=== PATIENT | female | born 1970 | race Caucasian/White ===

== ENCOUNTER 2025-03-31 17:02 | Emergency (ER) | payer MEDICAID ==
[~2025-03-31] VITALS: Ht 177.8 cm; Wt 84.1 kg
[2025-03-31 17:37] VITALS: BP 113/73; PULSE 89; RESP 14; TEMP 97.8; O2SAT 97
[2025-03-31 18:52] LABS: MEAN PLATELET VOLUME 8.8 FL (7.4-10.4); RED CELL DISTRIBUTION WIDTH 14.3 % (11.5-14.5)
[2025-03-31 18:53] LABS: CREATININE 0.91 MG/DL (0.40-0.90); TOTAL CARBON DIOXIDE 27.9 MMOL/L (24-32); eCRCL 76 ML/MIN; eGFR 64 ML/MIN
--- NOTE | 2025-03-31 18:58 | Physician Documentation ---
History of Present Illness ~ Chief Complaint: Numbness Stated Complaint: L SIDE NUMBNESS/ HEAD PAIN Time Seen by MD: 18:36 Source: patient Mode of Arrival: POV Exam Limitations: no limitations HPI 54-year-old female with complaints of left facial numbness to her cheek and down her neck as well as occipital headache since yesterday. Patient has been experiencing a lot of stress and grief as her mother recently . Patient denies any head trauma any weakness to arms or legs. Patient denies any significant medical history. Patient denies any difficulty with speech. Past Medical History Past Medical History: No Pertinent History Past Surgical History: no surgical history Alcohol Use: Rarely Drug Use: none Lives with: Family Lives In: Home Review of Systems All Other Systems at this time: Reviewed and Negative Neurological: Reports: see HPI Physical Exam Vital Signs: RN Vital Signs have been reviewed: Yes, Temperature: 97.8, Source: Temporal, Heart Rate: 89, Respiratory Rate: 14, BP: 113/73, Pulse Oximetry: 97, Weight: 84.090 Oxygen Flow Rate: 0 General Appearance General: Alert, no apparent distress. HEENT: PERRL, EOMI, no injection, moist mucous membranes. Neck: Full range of motion. Respiratory: Lungs clear, no respiratory distress. Chest: No accessory muscle use. Cardiovascular: Regular rate and rhythm, no murmurs. Extremities: Normal range of motion, no deformity. Neurologic: Oriented x4. Some reduced expressions to the left side of face unable to referral bowel on the left side but able to close eyes. Turner And Former Automatic strength equal bilaterally to upper and lower extremities good push pulls Psychiatric: Normal mood and affect. Skin: Normal color, warm and dry. No edema, no ecchymosis. Progress Results/Orders Results/Orders Orders - LAURA STEELE [facility] Ct Head (03/31/25 18:50) Hcg, Ur Ql (03/31/25 18:56) Completed Orders - LAURA STEELE [facility] Ct Head (03/31/25 18:50) Vital Signs 03/31/25 17:37 Temp 97.8 Pulse 89 Resp 14 B/P (MAP) 113/73 Pulse Ox 97 O2 Flow Rate 0 Laboratory Tests Test 03/31/25 17:16 White Blood Count 10.8 Red Blood Count 4.71 Hemoglobin 12.9 Hematocrit 38.4 Mean Corpuscular Volume 81.5 Mean Corpuscular Hemoglobin 27.3 Mean Corpuscular Hemoglobin Concent 33.5 Red Cell Distribution Width 14.3 Platelet Count 274 Mean Platelet Volume 8.8 Neutrophils (%) (Auto) 65.3 Lymphocytes (%) (Auto) 27.8 Monocytes (%) (Auto) 6.0 Eosinophils (%) (Auto) 0.5 Basophils (%) (Auto) 0.4 Neutrophils # (Auto) 7.1 Lymphocytes # (Auto) 3.0 Monocytes # (Auto) 0.7 Eosinophils # (Auto) 0.1 Basophils # (Auto) 0.0 CBC Comment Sodium Level 141 Potassium Level 3.9 Chloride Level 105 Carbon Dioxide Level 27.9 Anion Gap 8 Blood Urea Nitrogen 16 Creatinine 0.91 H Estimated GFR/1.73 m2 64 BUN/Creatinine Ratio 17.6 Glucose Level 132 H Calcium Level 9.1 C-Reactive Protein 1.14 H Albumin 3.5 Chemistry Comments EKG/XRAY/CT/US/VASC/MRI EKG : Additional Comment Sinus rhythm at 85 beats per minute normal axis no acute ST-T abnormalities CT : Impression Procedure: CT [facility] Study Date and Requested Time: 03/31/2025 06:54 PM History: Facial numbness times 24 hours Comparison: None Dose: CTDI: 59.98 mGy DLP: 1071.47 mGycm Technique: Multiplanar images obtained through the brain without intravenous contrast. Findings: Normal brain volume and formation. No hemorrhages, masses, mass effect, midline shift, herniation or cytotoxic edema following a large vascular territory. No intra-axial or extra-axial fluid collections. No evidence of hydrocephalus. The basal cisterns are patent. The pituitary gland, sella and parasellar regions are unremarkable. The cerebellar tonsils are in normal position. The cerebellum is unremarkable. The orbits and globes are unremarkable. Retention cyst within a right posterior ethmoid air cell. Otherwise, paranasal sinuses and mastoids are clear. There are no worrisome calvarial lesions. Impression: No evidence of acute intracranial abnormality. Medical Decision Making Findings Patient does of you minimal asymmetry to the left side of her face difficulty for allowing brown as equally on the right side. But no extremity deficits. We will CT scan her due to the occipital pain to the back of her head as mass or lesion versus TIA versus Avendaño's palsy even physiological symptoms of grief or differentials at this time. CT was unremarkable for any significant findings differentially this could be the start of Avendaño's palsy versus atypical aura or migraine headache due to the head pain as well. Patient to follow up with primary care Differential Dx:Considerations: Include: Avendaño's Palsey, CVA, Electrolyte imbalance, Mass lesion, Other Departure Time of Disposition: 19:28 Disposition: HOME / SELF CARE / HOMELESS Impression: Primary Impression: Numbness of face Condition: Stable Discharge Instructions: Avendaño's Palsy, Adult Additional Instructions: Your CT of your head was clear for any findings of TIA or stroke. This could be Avendaño's palsy which can cause facial numbness to 1 side of the face as well due to your head pain this could be atypical migraine. Rest and stay well hydrated use Tylenol ibuprofen for [id number] pain. Referrals: NO PRIMARY CARE PROVIDER (PCP) Education Educated: Patient Educated regarding: diagnosis, treatment, need for follow up Signature Scribe Signature: No scribe Attestation: The note accurately reflects work and decisions made by me.Laura FUENTES 03/31/25 18:58 LAURA STEELE NP Mar 31, 2025 18:58
--- NOTE | 2025-03-31 19:21 | RADIOLOGY REPORT ---
Procedure: CT CT [facility] Study Date and Requested Time: 03/31/2025 06:54 PM History: Facial numbness times 24 hours Comparison: None Dose: CTDI: 59.98 mGy DLP: 1071.47 mGycm Technique: Multiplanar images obtained through the brain without intravenous contrast. Findings: Normal brain volume and formation. No hemorrhages, masses, mass effect, midline shift, herniation or cytotoxic edema following a large vascular territory. No intra-axial or extra-axial fluid collections. No evidence of hydrocephalus. The basal cisterns are patent. The pituitary gland, sella and parasellar regions are unremarkable. The cerebellar tonsils are in normal position. The cerebellum is unremarkable. The orbits and globes are unremarkable. Retention cyst within a right posterior ethmoid air cell. Otherwise, paranasal sinuses and mastoids are clear. There are no worrisome calvarial lesions. Impression: No evidence of acute intracranial abnormality.
--- NOTE | 2025-04-02 08:08 | ELECTROCARDIOGRAPH REPORT ---
[facility] Test Date: 2025-03-31 Test Time: 17:12:10 Pat Name: NASIM GU Department: EMERGENCY ROOM Room: Gender: F Drafter Topographical: YASMANI : 1970 Requested By: RANJAN STEELE Order Number: [id number] Reading MD: Measurements Intervals [place] Rate: 95 P: 45 ID: [id number] QRS: 27 QRSD: 93 T: 2 QT: 360 QTc: 453 Interpretive Statements Sinus rhythm RSR' in V1 or V2, right VCD or RVH Borderline T abnormalities, anterior leads Please click the below link to view image of tracing.
== END 2025-03-31 19:44 | disposition home or self-care (01) ==
LOC: ER 17:03
DX: R20.0 Anesthesia of skin (principal); R51.9 Headache, unspecified
CPT/HCPCS: 36415; 70450; 80048; 85025; 85651; 86140; 93005; 99284